=== PATIENT | female | born 1980 | race Caucasian/White ===

== ENCOUNTER 2021-09-26 13:02 | Outpatient (CLI) | payer OTHER | END 2021-09-26 13:04 | disposition home or self-care (01) | LOC: NUCLEAR 13:02 | PROVIDERS: ATTEND Internal Medicine Sports Medicine | DX: C73 Malignant neoplasm of thyroid gland (principal) | CPT/HCPCS: 79005; A9517 ==

== ENCOUNTER 2021-10-01 12:53 | Outpatient (CLI) | payer OTHER | END 2021-10-01 12:55 | disposition home or self-care (01) | LOC: NUCLEAR 12:53 | PROVIDERS: ATTEND Internal Medicine Sports Medicine | DX: C73 Malignant neoplasm of thyroid gland (principal) ==

== ENCOUNTER 2023-09-17 13:42 | Outpatient (CLI) | payer OTHER | END 2023-09-17 13:43 | disposition home or self-care (01) | LOC: NUCLEAR 13:42 | PROVIDERS: ATTEND Internal Medicine Sports Medicine | DX: C73 Malignant neoplasm of thyroid gland (principal); E89.0 Postprocedural hypothyroidism ==